=== PATIENT | male | born 1990 | race Caucasian/White ===

== ENCOUNTER 2019-02-04 12:32 | Inpatient (IN) | payer SELFPAY ==
[~2019-02-04] VITALS: Ht 182.9 cm; Wt 126.6 kg
[2019-02-04] MEDS ORDERED: SODIUM CHLORIDE 0.9% 1,000 ML IV ONE (13:59)
[2019-02-04] MEDS ORDERED: ONDANSETRON HCL 4MG/2ML INJ IV STA (13:59)
[2019-02-04] MEDS ORDERED: MORPHINE SULFATE 4 MG/ML CPJ (NOT FOR IM USE) IV STA (13:59)
[2019-02-04 14:33] LABS: BASOPHILS % 0.1 % (0.0-2.0); EOSINOPHILS % 0.1 % (0.0-5.0); HEMATOCRIT. 47.8 % (42.0-52.0); HEMOGLOBIN. 16.5 g/dL (14.0-18.0); LYMPHOCYTES % 8.9 % (20.0-50.0); MEAN CORPUSCULAR HEMOGLOBIN 29.2 pg (28.0-32.0); MEAN CORPUSCULAR VOLUME 84.7 fL (80.0-94.0); MEAN PLATELET VOLUME 8.6 fl (7.4-10.4); MONOCYTES % 9.8 % (2.0-8.0); NEUTROPHILS % 81.1 % (40.0-76.0); PLATELET 454 x1000/uL (130-400); RED BLOOD CELL COUNT 5.64 mill/uL (4.7-6.1); RED CELL DISTRIBUTION WIDTH 12.8 % (11.6-14.6)
[2019-02-04 14:40] LABS: CHLORIDE 85 mEq/L (98-107)
[2019-02-04 14:43] LABS: ETHANOL BLOOD < 10 mg/dL
[2019-02-04 14:48] LABS: INR 1.2; PARTIAL THROMBOPLASTIN TIME 33.4 sec (23.4-31.0)
[2019-02-04] MEDS ORDERED: KCL 20MEQ/100ML PREMIX 100 ML IV ONE (15:30)
[2019-02-04] MEDS ORDERED: PIPERACILLIN/TAZ 3.375G PREMIX 50 ML IV ONE (16:30)
[2019-02-04] MEDS ORDERED: METRONIDAZOLE 500 MG PREMIX 100 ML IV ONE (16:30)
[2019-02-04] MEDS ORDERED: KETOROLAC 30MG/ML VIAL IV ONE (16:30)
[2019-02-04] MEDS ORDERED: HYDROCORTISONE SOD SUCCINATE 100 MG/2 ML VIAL IV ONE (16:30)
[2019-02-04] MEDS ORDERED: LORAZEPAM 0.5MG TABLET PO PRN (17:45)
[2019-02-04] MEDS ORDERED: DOCUSATE SODIUM 100MG CAPSULE PO PRN (17:45)
[2019-02-04] MEDS ORDERED: ACETAMINOPHEN 325MG TABLET PO PRN (17:45)
[2019-02-04] MEDS ORDERED: GUAIFENESIN 200MG/10ML SUGAR FREE UDC PO PRN (17:45)
[2019-02-04] MEDS ORDERED: IPRATROPIUM/ALBUTEROL 0.5-3(2.5)MG/3ML NEB NEB PRN (17:45)
[2019-02-04] MEDS ORDERED: PIPERACILLIN/TAZ 3.375G PREMIX 50 ML IV SCH (17:45)
[2019-02-04] MEDS ORDERED: CLONIDINE 0.1MG TABLET PO PRN (17:45)
[2019-02-04] MEDS ORDERED: NITROGLYCERIN 0.4MG TABLET SL SL PRN (17:45)
[2019-02-04] MEDS ORDERED: MAGNESIUM/ALUMINUM HYDROXIDE/SIMETHICONE 30ML UDC PO PRN (17:45)
[2019-02-04 22:02] VITALS: BP 117/67
[2019-02-04] MEDS: FAMOTIDINE 20MG TABLET PO SCH (22:42)
[2019-02-04] MEDS: SODIUM CHLORIDE 0.9% 1,000 ML IV SCH (22:43)
[2019-02-04] MEDS ORDERED: POTASSIUM CHLORIDE 20MEQ TABLET SR PO NR (23:00)
[2019-02-05] VITALS (21 sets, daily range): BP systolic 102–145; BP diastolic 54–86
[2019-02-05] MEDS ORDERED: KCL 20MEQ/100ML PREMIX 100 ML IV NR
[2019-02-05] MEDS: PIPERACILLIN/TAZOBACTAM 3.375 G in DEXT 5% WATER 100 ML IV SCH ×3 (01:42→19:08)
[2019-02-05] MEDS: ZOLPIDEM TARTRATE 5MG TABLET PO PRN ×2 (01:52→21:41)
[2019-02-05] MEDS: KETOROLAC 15MG/ML VIAL IV PRN ×2 (03:23→16:27)
[2019-02-05 07:34] LABS: BASOPHILS % 0.1 % (0.0-2.0); EOSINOPHILS % 0.1 % (0.0-5.0); HEMATOCRIT. 43.3 % (42.0-52.0); HEMOGLOBIN. 15.1 g/dL (14.0-18.0); LYMPHOCYTES % 11.1 % (20.0-50.0); MEAN CORPUSCULAR HEMOGLOBIN 29.9 pg (28.0-32.0); MEAN CORPUSCULAR VOLUME 85.6 fL (80.0-94.0); MEAN PLATELET VOLUME 8.8 fl (7.4-10.4); MONOCYTES % 13.5 % (2.0-8.0); NEUTROPHILS % 75.2 % (40.0-76.0); PLATELET 397 x1000/uL (130-400); RED BLOOD CELL COUNT 5.06 mill/uL (4.7-6.1); RED CELL DISTRIBUTION WIDTH 13.1 % (11.6-14.6)
[2019-02-05 08:05] LABS: CHLORIDE 89 mEq/L (98-107)
[2019-02-05 08:18] LABS: PHOSPHORUS 2.9 mg/dL (2.5-4.9)
[2019-02-05] MEDS ORDERED: POTASSIUM CHLORIDE 20MEQ TABLET SR PO NR (10:00)
[2019-02-05] MEDS: ONDANSETRON HCL 4MG/2ML INJ IV PRN ×2 (10:14→23:44)
[2019-02-05] MEDS: FAMOTIDINE 20MG TABLET PO SCH ×2 (10:54→21:41)
[2019-02-05] MEDS ORDERED: SODIUM BICARBONATE 4% (2.4MEQ) 5ML VIAL IV ONE (10:58)
[2019-02-05] MEDS ORDERED: FENTANYL CITRATE/PF 50MCG/ML 2ML VIAL ONE (10:58)
[2019-02-05] MEDS ORDERED: LIDOCAINE HCL 1% 20ML VIAL (Pyxis) INJ ONE (10:58)
[2019-02-05] MEDS ORDERED: POTASSIUM CHLORIDE INJ 40 MEQ in DEXT 5% WATER 250 ML IV NR (11:00)
[2019-02-05] MEDS ORDERED: FENTANYL CITRATE/PF 50MCG/ML 2ML VIAL IV ONE (13:00)
[2019-02-05] MEDS: SODIUM CHLORIDE 0.9% 1,000 ML IV SCH ×2 (16:29→19:00)
[2019-02-05] MEDS ORDERED: MORPHINE SULFATE 2 MG/ML CPJ (NOT FOR IM USE) IV PRN (17:00)
[2019-02-05 17:10] LABS: CLARITY URINE CLEAR (CLEAR); COLOR URINE DARK YELLOW (YELLOW); KETONES URINE TRACE (NEGATIVE); LEUKOCYTE ESTERASE URINE NEGATIVE (NEGATIVE); NITRITE URINE NEGATIVE (NEGATIVE); OCCULT BLOOD URINE 2+ (NEGATIVE); PROTEIN URINE 1+ (NEGATIVE); SPECIFIC GRAVITY URINE 1.023 (1.005-1.030); UROBILINOGEN URINE 0.2 E.U./dL (0.2-1.0)
[2019-02-05 17:34] LABS: *AMPHETAMINES SCREEN URINE NEGATIVE (NEGATIVE); CANNABINOID URINE SCREEN NEGATIVE (NEGATIVE); PHENCYCLIDINE URINE SCREEN NEGATIVE (NEGATIVE)
[2019-02-05 17:35] LABS: *BARBITURATES SCREEN URINE NEGATIVE (NEGATIVE); *BENZODIAZEPINES SCREEN URINE NEGATIVE (NEGATIVE); *COCAINE SCREEN URINE NEGATIVE (NEGATIVE); METHADONE URINE SCREEN NEGATIVE (NEGATIVE); OPIATES URINE SCREEN NEGATIVE (NEGATIVE)
[2019-02-06] VITALS: BP 117/79
[2019-02-06] MEDS: PIPERACILLIN/TAZOBACTAM 3.375 G in DEXT 5% WATER 100 ML IV SCH ×3 (02:17→17:31)
[2019-02-06 04:00] VITALS: BP 130/89
[2019-02-06] MEDS: SODIUM CHLORIDE 0.9% 1,000 ML IV SCH ×2 (05:35→15:00)
[2019-02-06 08:00] VITALS: BP 124/77
[2019-02-06] MEDS: TRAMADOL 50MG TABLET PO PRN (11:43)
[2019-02-06] MEDS: FAMOTIDINE 20MG TABLET PO SCH ×2 (11:43→21:00)
[2019-02-06] MEDS: ONDANSETRON HCL 4MG/2ML INJ IV PRN ×2 (11:43→21:22)
[2019-02-06 12:00] VITALS: BP 128/84
[2019-02-06 20:00] VITALS: BP 129/83
[2019-02-06] MEDS: ZOLPIDEM TARTRATE 5MG TABLET PO PRN (21:00)
[2019-02-07] VITALS: BP 145/82
[2019-02-07] MEDS: SODIUM CHLORIDE 0.9% 1,000 ML IV SCH ×3 (01:00→21:00)
[2019-02-07] MEDS: PIPERACILLIN/TAZOBACTAM 3.375 G in DEXT 5% WATER 100 ML IV SCH ×3 (01:09→18:00)
[2019-02-07] MEDS: KETOROLAC 15MG/ML VIAL IV PRN ×4 (01:10→16:59)
[2019-02-07 04:00] VITALS: BP 134/79
[2019-02-07 08:00] VITALS: BP 126/76
[2019-02-07 09:06] LABS: SACCHAROMYCES CEREVISIAE IGG <20.0 Units (0.0-24.9); SACCHAROMYCES CEREVISIAE IGM <20.0 Units (0.0-24.9)
[2019-02-07] MEDS: FAMOTIDINE 20MG TABLET PO SCH ×2 (09:57→22:51)
[2019-02-07] MEDS: ONDANSETRON HCL 4MG/2ML INJ IV PRN ×2 (09:59→10:00)
[2019-02-07 11:33] LABS: CHLORIDE 94 mEq/L (98-107)
[2019-02-07 12:00] VITALS: BP 120/81
[2019-02-07] MEDS ORDERED: POTASSIUM CHLORIDE 20MEQ TABLET SR PO SCH ×2 (12:45→16:45)
[2019-02-07] MEDS: TRAMADOL 50MG TABLET PO PRN ×2 (13:58→20:08)
[2019-02-07] MEDS ORDERED: POTASSIUM CHLORIDE INJ 40 MEQ in DEXT 5% WATER 250 ML IV SCH (14:00)
[2019-02-07 14:08] LABS: ATYPICAL pANCA <1:20 titer (Neg:<1:20)
[2019-02-07 16:00] VITALS: BP 95/52
[2019-02-07 20:00] VITALS: BP 126/78
[2019-02-08] VITALS: BP 122/88
[2019-02-08] MEDS: PIPERACILLIN/TAZOBACTAM 3.375 G in DEXT 5% WATER 100 ML IV SCH ×2 (02:00→09:07)
[2019-02-08] MEDS: TRAMADOL 50MG TABLET PO PRN (02:08)
[2019-02-08 04:00] VITALS: BP 116/71
[2019-02-08] MEDS: SODIUM CHLORIDE 0.9% 1,000 ML IV SCH ×2 (07:00→17:00)
[2019-02-08 08:00] VITALS: BP 140/80
[2019-02-08] MEDS: FAMOTIDINE 20MG TABLET PO SCH ×2 (09:00→20:43)
[2019-02-08] MEDS ORDERED: IOHEXOL-300 50 ML BOTTLE IV ONE (09:48)
[2019-02-08 12:00] VITALS: BP 132/87
[2019-02-08] MEDS: KETOROLAC 15MG/ML VIAL IV PRN (12:41)
[2019-02-08 13:02] LABS: CHLORIDE 101 mEq/L (98-107)
[2019-02-08] MEDS ORDERED: POTASSIUM CHLORIDE 20MEQ TABLET SR PO NR ×2 (14:45→19:00)
[2019-02-08 16:00] VITALS: BP 135/88
[2019-02-08] MEDS ORDERED: LEVOFLOXACIN 500MG TABLET PO SCH (17:00)
[2019-02-08] MEDS: METRONIDAZOLE 500MG TABLET PO SCH ×2 (17:59→23:32)
[2019-02-08 20:00] VITALS: BP 133/79
[2019-02-09] VITALS (17 sets, daily range): BP systolic 113–144; BP diastolic 66–91
[2019-02-09] MEDS: KETOROLAC 15MG/ML VIAL IV PRN ×2 (02:29→14:25)
[2019-02-09] MEDS: SODIUM CHLORIDE 0.9% 1,000 ML IV SCH ×3 (03:00→22:56)
[2019-02-09] MEDS: METRONIDAZOLE 500MG TABLET PO SCH ×3 (06:12→22:55)
[2019-02-09] MEDS ORDERED: BARIUM SULFATE 450ML ORAL SUSP PO SCH (08:00)
[2019-02-09] MEDS: DIATR MEGLU/DIATRIZOATE SOLN 30ML PO SCH ×2 (08:40→09:49)
[2019-02-09] MEDS: FAMOTIDINE 20MG TABLET PO SCH ×2 (08:40→20:34)
[2019-02-09] MEDS ORDERED: FENTANYL CITRATE/PF 50MCG/ML 2ML VIAL ONE (10:58)
[2019-02-09] MEDS ORDERED: LIDOCAINE HCL 1% 20ML VIAL (Pyxis) INJ ONE (11:03)
[2019-02-09] MEDS ORDERED: SODIUM BICARBONATE 4% (2.4MEQ) 5ML VIAL IV ONE (11:03)
[2019-02-09] MEDS ORDERED: FENTANYL CITRATE/PF 50MCG/ML 2ML VIAL IV ONE (11:45)
[2019-02-09] MEDS: LEVOFLOXACIN 500MG TABLET PO SCH (13:30)
[2019-02-09] MEDS: MORPHINE SULFATE 2 MG/ML CPJ (NOT FOR IM USE) IV PRN (18:44)
[2019-02-10] VITALS: BP 160/69
[2019-02-10] MEDS: MORPHINE SULFATE 2 MG/ML CPJ (NOT FOR IM USE) IV PRN (03:09)
[2019-02-10 04:00] VITALS: BP 138/81
[2019-02-10] MEDS: METRONIDAZOLE 500MG TABLET PO SCH (06:36)
[2019-02-10 08:00] VITALS: BP 112/82
[2019-02-10] MEDS: SODIUM CHLORIDE 0.9% 1,000 ML IV SCH (08:37)
[2019-02-10] MEDS: FAMOTIDINE 20MG TABLET PO SCH (08:41)
[2019-02-10 11:20] VITALS: BP 112/82
[2019-02-10] MEDS: LEVOFLOXACIN 500MG TABLET PO SCH (11:26)
== END 2019-02-10 12:10 | disposition home or self-care (01) | DRG 254 ==
LOC: ER 12:51 → 7WST 17:28 → ENRESERV 20:19
PROVIDERS: ADMIT Internal Medicine; ATTEND Internal Medicine
PROC: 0W9H3ZZ Drainage of Retroperitoneum, Percutaneous Approach (ICD-10-PCS; principal; 2019-02-05)
PROC: 0W9F3ZZ Drainage of Abdominal Wall, Percutaneous Approach (ICD-10-PCS; 2019-02-09)
DX: K63.1 Perforation of intestine (nontraumatic) (principal); E44.0 Moderate protein-calorie malnutrition; E83.51 Hypocalcemia; E87.1 Hypo-osmolality and hyponatremia; K52.9 Noninfective gastroenteritis and colitis, unspecified; L02.211 Cutaneous abscess of abdominal wall; E87.6 Hypokalemia; Z68.37 Body mass index [BMI] 37.0-37.9, adult
CPT/HCPCS: 36415; 71045; 74176; 76942; 80048; 80305; 80320; 81003; 83036; 83605; 83735; 83880; 84100; 84484; 86256; 86671; 87070; 87075; 87077; 87186; 96361; 96374; 96375; 99152; 99153; 99285; C1729; J1720; J1885; J2270; J2405; J2543; J3010; J3480; J3490; J7030; J7060; Q9963; Q9967; A4315; G0480; G0500